=== PATIENT | female | born 1985 | race Caucasian/White ===

== ENCOUNTER → 2018-08-12 | Outpatient (REF) | payer OTHER, MEDICAID ==
[2018-08-18 14:13] LABS: HPV HYBRID CAPTURE II Negative (Negative)
== END ==
LOC: M LAB LCGH 14:21
PROVIDERS: ATTEND Obstetrics & Gynecology
DX: Z12.4 Encounter for screening for malignant neoplasm of cervix (principal); N87.0 Mild cervical dysplasia